=== PATIENT | male | born 1930 | race Caucasian/White ===

== ENCOUNTER 2016-10-10 08:15 | Emergency (ER) | payer OTHER ==
[~2016-10-10] VITALS: Ht 172.7 cm; Wt 77.7 kg
[~2016-10-10 08:15] MED LIST: ALTACE10 MG; ARICEPT5 MG; DONEPEZIL HCL10 MG PO; ECOTRIN325 MG PO; IMDUR30 MG; JANUVIA25 M1 PO; LIPITOR10 MG; MULTIVITAMINS1 EA10 PO; NAMENDA10 MG; PRAVACHOL20 MG PO; TAMIFLU30 MG PO; VENTOLIN HFA18 GM IH; VITAMIN B12-FO1 EACH PO; VITAMIN D32000 UNIT PO
[2016-10-10 09:27] LABS: HEMATOCRIT 38.7 % (38.0-50.0); MCH 32.7 PG (29.0-34.0); MCHC 33.6 G/DL (30.0-36.0); MCV 97.2 FL (86-99); MEAN PLAT.VOLUME 12.5 uM^3 (9.0-12.4); PLATELET COUNT 150 K/uL (156-360); RBC DIS.WIDTH-CV 13.2 % (11.8-14.6); RBC DIS.WIDTH-SD 47.6 % (39-53); RED BLOOD COUNT 3.98 M/uL (4.00-5.50); WHITE BLOOD COUNT 7.1 K/uL (4.1-10.2)
[2016-10-10 09:39] LABS: CHLORIDE 109 mEq/L (99-109); POTASSIUM 4.6 mEq/L (3.7-5.4); SODIUM 144 mEq/L (136-147)
[2016-10-10 09:40] LABS: MAGNESIUM 2.1 mg/dL (1.3-2.7)
[2016-10-10 09:41] LABS: GLUCOSE 112 mg/dL (70-99)
[2016-10-10 09:42] LABS: ANION GAP 9 MEQ/L (2-14)
[2016-10-10 09:45] LABS: GFR ESTIMATE (CALCULATED) > 59 mL/min/
[2016-10-10 09:46] LABS: UREA NITROGEN (BUN) 25 mg/dL (9-23)
[2016-10-10 09:48] LABS: TROP-I INTERPRETATION NEGATIVE; TROPONIN-I < 0.01 ng/mL (0.0-0.30)
[2016-10-10 11:18] VITALS: BP 130/56
== END 2016-10-10 12:01 ==
LOC: EME → EDBD 08:15 → EME 08:15
DX: R00.1 Bradycardia, unspecified (principal); R55 Syncope and collapse; I10 Essential (primary) hypertension; E11.9 Type 2 diabetes mellitus without complications; F03.90 Unspecified dementia, unspecified severity, without behavioral disturbance, psychotic disturbance, mood disturbance, and anxiety; E78.5 Hyperlipidemia, unspecified; K21.9 Gastro-esophageal reflux disease without esophagitis; Z86.73 Personal history of transient ischemic attack (TIA), and cerebral infarction without residual deficits; F32.9 Major depressive disorder, single episode, unspecified; Z95.1 Presence of aortocoronary bypass graft; Z95.5 Presence of coronary angioplasty implant and graft; Z79.82 Long term (current) use of aspirin; Z79.84 Long term (current) use of oral hypoglycemic drugs; Z66 Do not resuscitate; Z51.5 Encounter for palliative care
CPT/HCPCS: 71020; 80048; 83735; 84100; 84484; 85027; 93005; 99281; 99284